=== PATIENT | female | born 2000 | race Caucasian/White ===

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

== ENCOUNTER 2020-09-14 11:22 | Emergency (ER) | payer SELFPAY ==
[2020-09-14 11:26] VITALS: BP 133/73; PULSE 92; RESP 16; TEMP 36.6; O2SAT 99
--- NOTE | 2020-09-14 11:34 | ED.GENADUL_ITS ---
Discharge Plan Disposition Patient Disposition: HOME Condition: Stable Discharge Details Chief Complaint: Cellulitis Clinical Impression: Tick bite Primary Care Provider: Shmuel Courtney ED Provider: José Miguel Marie Home Meds and New Rx's Prescriptions: No Action Nexplanon 68 MG implant 68 mg SQ ONCE Qty: 1 RF: 0 Discharge Instructions Instructions: Tick Bite (ED) Additional Instructions: if you develop fevers, pain or a bulls eye appearing rash return to the emergency department for reevaluation Medical Decision Making 19 yo female who denies chronic medical problems comes in with cc of tick bite. States she pulled a tick off her left upper back this morning and is unsure how long it was there for. Denies fevers, chills, pain, or rashes other than some mild erythema around the tick bite which is about 1mm around the bite. no fluctuance or drainage. Given no bulls eye rash or other symptoms do not feel testing or treatment for lyme or other tick born illness indicated, will provide prophylactic dose of doxy and return precautions given Differential Diagnosis Differential Diagnosis: tick bite, lyme, cellulitis HPI General Mode of arrival: ambulatory . Date/Time Provider Initiated Documentation: 09/14/20 11:29 . Limitations to Documentation: no limitations . Information obtained by: patient . History of Present Illness 19 year old F presents to the emergency department with the chief complaint of tick bite, described as mild, and it has been constant. No relieving factors improve symptom(s), No exacerbating factors reported . Patient notes no other symptoms.. Related Data Home Medications Medication Instructions Recorded Confirmed Nexplanon 68 mg SQ ONCE #1 implant 12/24/17 09/14/20 Allergies Allergy/AdvReac Type Severity Reaction Status Date / Time No Known Allergies Allergy Unverified 09/14/20 11:28 General Stated Complaint: Cellulitis RADHA: 4 Review of Systems All systems reviewed & are unremarkable except as noted in HPI and below Constitutional Constitutional: Denies chills, Denies fever(s) and Denies weakness Cardiovascular Cardiovascular: Denies chest pain and Denies dyspnea Respiratory Respiratory: Denies cough and Denies dyspnea Gastrointestinal Gastrointestinal: Denies abdominal pain, Denies nausea and Denies vomiting Musculoskeletal Musculoskeletal: Denies joint swelling Neurologic Neurologic: Denies weakness Psychiatric Psychiatric: Denies depression [facility] Medical History (Updated 09/14/20 @ 11:38 by José Miguel Marie MD) 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 Grandmother Personal history of malignant neoplasm breast [place] Social History Smoking/Tobacco Use Status: Current-Occasional Tobacco Type: cigarettes Smoking risk assessment performed?: Yes Alcohol Intake: never Drug use: Occasionally Substance use type: marijuana Do you feel safe at home: Yes Do you feel safe in your relationship?: Yes Exam Const General: no acute distress Orientation: alert HENMT Head: normal to inspection Ears: external ears normal General nose exam: external nose normal Mouth: moist mucous membranes Eyes General: appearance normal, both eyes and all related structures Neck Neck: normal visual inspection Resp Effort & Inspection: normal respiratory effort and able to speak in complete sentences Cardio Rate: regular rate Skin General skin exam: elasticity normal Neuro General: patient alert and patient oriented x3 Extrem General: normal to inspection Psych Mental Status: mental status grossly normal Course Vital Signs Vital signs: Vital Signs Temperature 36.6 C 09/14/20 11:26 Pulse 92 H 09/14/20 11:26 Respiratory Rate 16 09/14/20 11:26 Blood Pressure 133/73 09/14/20 11:26 Pulse Oximetry 99 09/14/20 11:26 Temperature 36.6 C 09/14/20 11:26 Temperature Source Skin 09/14/20 11:26 Pulse 92 H 09/14/20 11:26 Respiratory Rate 16 09/14/20 11:26 Respiratory Effort Non-Labored 09/14/20 11:29 Blood Pressure 133/73 09/14/20 11:26 Blood Pressure Position Sitting 09/14/20 11:26 Pulse Oximetry 99 09/14/20 11:26 Oxygen Delivery Method Room Air 09/14/20 11:26 Oxygen Flow Rate 0 09/14/20 11:26 Pain Level 2 09/14/20 11:26
[2020-09-14] MEDS: Doxycycline Hyclate 100 MG CAP 200 MG PO (11:37)
== END 2020-09-14 11:53 | disposition home or self-care (01) ==
PROVIDERS: Emergency Provider Emergency Medicine; PCP Pediatrics
DX: S20.462A Insect bite (nonvenomous) of left back wall of thorax, initial encounter (principal); W57.XXXA Bitten or stung by nonvenomous insect and other nonvenomous arthropods, initial encounter
CPT/HCPCS: 99283

== ENCOUNTER 2020-10-02 14:39 | Outpatient (REF) | payer SELFPAY ==
[2020-10-03 14:06] LABS: Chlamydia Result Negative (Negative); GC Result Negative (Negative)
[2020-10-10 08:56] LABS: HSV 1 DNA Result Negative (Negative); HSV 2 DNA Result Positive (Negative)
== END 2020-10-02 14:40 | disposition home or self-care (01) ==
LOC: LBN 14:39
PROVIDERS: PCP Pediatrics; Visit Provider Nurse Practitioner Women's Health
DX: N90.89 Other specified noninflammatory disorders of vulva and perineum (principal); Z11.3 Encounter for screening for infections with a predominantly sexual mode of transmission; Z11.59 Encounter for screening for other viral diseases
CPT/HCPCS: 87491; 87529; 87591

== ENCOUNTER 2024-07-18 13:47 | Outpatient (REF) | payer BC, SELFPAY ==
--- NOTE | 2024-07-18 13:30 | PAPFT_PTH ---
PATIENT: Cathy Santiago LOC: [facility] U#:[id number] AGE/SX: 23/F ROOM: RE07/18/[address]: Kenia Ornelas : 2000 BED: DIS: 07/18/2024 SPEC #: [id number] RECD: 07/18/24 17:38 STATUS: JAVIER REAlmita #: [id number] FRAN: 07/18/24 13:[address]: Kenia Ornelas DEPT: [facility] Cytology RECD BY: Afia Olvera ENTERED: 07/18/24 17:38 SP TYPE: PAPFT OTHR DR: Unknown,Unknown Tissues: 1 - CX/ENDOCX FOR PAP SMEARS Procedures: PAP THIN PREP/[facility] Screening HPV DNA PROBE Comments: [id number] (HPV 16 & 18/45)
[2024-07-19 12:09] LABS: Chlamydia Result Negative (Negative); GC Result Negative (Negative)
== END 2024-07-18 13:48 | disposition home or self-care (01) ==
LOC: LBN 13:47
PROVIDERS: Visit Provider Obstetrics & Gynecology Gynecology
DX: Z01.419 Encounter for gynecological examination (general) (routine) without abnormal findings (principal); Z11.51 Encounter for screening for human papillomavirus (HPV); Z11.3 Encounter for screening for infections with a predominantly sexual mode of transmission
CPT/HCPCS: 87491; 87591; 88142; 87624

== ENCOUNTER 2024-07-18 15:07 | Outpatient (CLI) | payer BC, SELFPAY ==
--- OUTSIDE RECORDS SUMMARY | 2024-07-18 15:10 | XMS_ITS | Encounter Summary ---
Author Organization [facility] Address [address] [place] [id number] Care Team Providers Care Physical Meteorologist Name Role Phone Unavailable Primary Care Provider Unavailabl e Encounter Details Date Type Department Care Team (Late st Contact Info) Description 10/02/2020 Lab Requisition [facility] Pathology & Laboratory Medicine - [facility] [address] [place] [address] Outr Resulting Lab, Provider Social History Tobacco Use Types Packs/Day Years Used Date Smoking Tobacco: Never Assessed Interpersonal Safety Answer Date Record ed Physically Hurt Never 10/02/2020 Verbally Threaten Not on file 10/02/2020 Comments Unknown Sex and Gender Information Value Date Recorded Sex Assigned at Not on file Legal Sex Female 16:06 EDT Gender Identity Not on file Sexual Orientation Not on file documented as of this encounter Plan of Treatment Not on file documented as of this encounter Procedures Procedure Name Priority Date/Time Associated Diagnosis Comments CHLAMYDIA/N. GONORRHOEAE AMPLIFIED NUCLEIC ACID Routine 10/02/2020 11:30 EDT documented in this encounter Results * CHLAMYDIA/N. GONORRHOEAE AMPLIFIED RNA (10/02/2020 11:30 EDT) Neisseria gonorrhoeae Result Negative Negative 10/03/2020 14:01 EDT [facility] Chlamydia trachomatis Result Negative Negative 10/03/2020 14:01 EDT [facility] Swab ENTIRE VAGINA / Unknown 10/02/2020 11:30 EDT 10/02/2020 20:57 EDT us Provider Outr Resulting Lab MICROBIOLOGY - GENER AL ORDERABLES Final Result [facility] [address] [place] [address] documented in this encounter Visit Diagnoses Not on filedocumented in this encounter
--- OUTSIDE RECORDS SUMMARY | 2024-07-18 15:10 | XMS_ITS | Referral Summary ---
Author Organization [facility] Address [address] [place] [address] Care Team Providers Care Order Puller Name Role Phone Unavailable Primary Care Provider Unavailabl e Social History Tobacco Use Types Packs/Day Years Used Date Smoking Tobacco: Never Assessed Interpersonal Safety Answer Date Record ed Physically Hurt Never 10/02/2020 Verbally Threaten Not on file 10/02/2020 Comments Unknown Sex and Gender Information Value Date Recorded Sex Assigned at Not on file Legal Sex Female 16:06 EDT Gender Identity Not on file Sexual Orientation Not on file Plan of Treatment Not on file
--- OUTSIDE RECORDS SUMMARY | 2024-07-18 15:10 | XMS_ITS | Clinical Summary ---
Author Organization [facility] Address [address] [place] [address] Care Team Providers Care Supervisor Whipped Topping Name Role Phone Unavailable Primary Care Provider [...] Orientation Not on file Plan of Treatment Health Maintenance Due Date Last Done Comments Hepatitis C Screen 2000 Hepatitis B Vaccine (1 of 3 - 19+ 3-dose series) 10/07 COVID-19 Vaccine ( season) 2024
--- OUTSIDE RECORDS SUMMARY | 2024-07-18 15:10 | XMS_ITS | Encounter Summary ---
Author Organization [facility] Address [address] [place] [address] Care Team Providers Care Finisher Accordion Name Role Phone Unavailable Primary Care Provider Unavailabl e Encounter Details Date Type Department Care Team (Late st Contact Info) Description 10/02/2020 Lab Requisition [facility] Pathology & Laboratory Medicine - [facility] [address] [place] [address] Outr Resulting Lab, Provider Social History Tobacco [...] Procedure Name Priority Date/Time Associated Diagnosis Comments HSV (HERPES SIMPLEX VIRUS) MOLECULAR DETECTION, PCR Routine 10/02/2020 11:30 EDT documented in this encounter Results * (ABNORMAL) HERPES SIMPLEX VIRUS MOLECULAR DETECTION, PCR (10/02/2020 11:30 EDT) Herpes Simplex Virus Molecular Detection 1, PCR Negative Negative 10/03/2020 13:02 EDT [facility] Herpes Simplex Virus Molecular Detection 2, PCR Positive(A) Negative 10/03/2020 13:02 EDT [facility] Swab ENTIRE VULVA / Unknown 10/02/2020 11:30 EDT 10/02/2020 20:56 EDT us Provider Outr Resulting Lab MICROBIOLOGY - GENER AL ORDERABLES Final Result [facility] [address] [place] [address] documented in this encounter Visit Diagnoses Not on filedocumented in this encounter
[2024-07-20 10:39] LABS: Antimullerian Hormone 3.7 ng/mL (1.2-12)
== END 2024-07-18 15:08 | disposition home or self-care (01) ==
LOC: LBO 15:08
PROVIDERS: Visit Provider Obstetrics & Gynecology Gynecology
DX: Z30.09 Encounter for other general counseling and advice on contraception (principal); Z01.419 Encounter for gynecological examination (general) (routine) without abnormal findings
CPT/HCPCS: 36415; 87491; 87591; 83520

== ENCOUNTER 2024-08-21 03:02 | Emergency (ER) | payer BC, SELFPAY ==
[2024-08-21 03:06] VITALS: BP 105/59; PULSE 140; RESP 22; TEMP 38.7; O2SAT 97
--- NOTE | 2024-08-21 03:08 | W.ED.GENAD ---
Discharge Plan Disposition Patient Disposition: Home Condition: Stable Discharge Details Clinical Impression: Acute streptococcal pharyngitis Primary Care Provider: Fara,Local ED Provider: John Miramontes [place] Meds and New Rx's Prescriptions: New amoxicillin-pot clavulanate 875-125 mg tablet 1 tab PO BID Qty: 14 0RF Continued valacyclovir 500 mg tablet 500 mg PO BID PRN (Reason: HSV outbreak) 3 Days Qty: 6 6RF Rx Instructions: Take one tab twice a day for 3 days for outbreaks Discharge Instructions Instructions: Strep Throat ED Discharge Data Discharge Physician: John Miramontes HPI General Date/Time Provider Initiated Documentation: 08/21/24 03:08. HPI Narrative: Patient presents emergency department complaining of fever chills and sore throat and generalized bodyaches Related Data Home Medications ?Medication ?Instructions ?Recorded ?Confirmed valacyclovir 500 mg tablet 500 mg PO BID PRN HSV outbreak 3 10/10/20 08/21/24 days #6 tabs amoxicillin 875 mg-potassium 1 tab PO BID #14 tabs 08/21/24 clavulanate 125 mg tablet Previous Rx's ?Medication ?Instructions ?Recorded valacyclovir 500 mg tablet 500 mg PO BID PRN HSV outbreak 3 10/10/20 days #6 tabs amoxicillin 875 mg-potassium 1 tab PO BID #14 tabs 08/21/24 clavulanate 125 mg tablet Allergies Allergy/AdvReac Type Severity Reaction Status Date / Time No Known Allergies Allergy Unverified 08/21/24 03:05 General RADHA: 4 Review of Systems Narrative: Review of Systems: Constitutional: No sweats Eye: No recent visual problems ENT: No ear pain, nasal congestion, Respiratory: No shortness of breath, cough Cardiovascular: No Chest pain, palpitations, syncope Gastrointestinal: No nausea, vomiting, diarrhea Genitourinary: No hematuria Cliff/Lymph: Negative for bruising tendency, swollen lymph glands Endocrine: Negative for excessive thirst, excessive hunger Musculoskeletal: No back pain, neck pain, joint pain, muscle pain, decreased range of motion Integumentary: No rash, pruritus, abrasions Neurologic: Alert & oriented X 4 Psychiatric: No anxiety, depression Exam Narrative Exam Narrative: Exam; vitals signs as reported above normal Constitutional; In no acute distress, afebrile General: cooperative, healthy appearing, comfortable and no acute distress HEENT: Head: normal to inspection, no palpable skull fracture and normocephalic atraumatic Eyes: : appearance normal, both eyes and all related structures EOM intact bilaterally Pupils: PERRL : conjunctiva normal Direct ophthalmoscopy: normal light reflex, normal conjunctiva, normal visual acuity Ears: Normal TM, normal external canal Nose: normal no rhinorreha Oropharynx: Hyperemic with posterior exudate Neck no JVD, supple non tender Neck: normal visual inspection, full ROM and no lymphadenopathy Chest: normal inspection of the chest Respiratory : normal respiratory effort and able to speak in complete sentences no wheezing no rales Cardio Rate: regular rate, rhythm: regular rhythm normal heart sounds S1 and S2 no murmurs, gallops, or rubs GI : normal to inspection, normal bowel sounds, soft, non tender, non distended, no organomegaly Back/Spine/ no CVA tenderness Thoracic/Lumbar Spine: no tenderness or deformities Skin no rashes or lesions Neuro: patient alert oriented x 4 and no meningeal signs, Cranial Nerves: CN's II-XI intact bilaterally, Cognition: normal cognition, Speech: speech normal, Gait: normal gait, Depp tendon reflexes normal 2+ muscle strength 5/5 bilaterally Extremities, no edema, full range of motion, normal strength : normal Rectal: Medical Decision Making MDM: Summary: Patient with a sore throat with this positive for strep a who will be treated with amoxicillin colonic acid for 7 days Data Review Analysis All the data on this patient was reviewed by me including laboratory and imaging studies as well as bedside studies performed by me Independent review of Studies Imaging Lab: Positive for strep today negative for influenza and COVID Risk Stratification: Patient with strep patient will be discharged home Differential Diagnosis: 1. Strep pharyngitis 2. Viral pharyngitis 3. Influenza 4. COVID-19 5. 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
[2024-08-21 03:17] VITALS: PULSE 135; RESP 19; TEMP 38.7; O2SAT 98
[2024-08-21 03:59] LABS: COVID-19 PCR Negative (Negative); Influenza A PCR Negative (Negative); Influenza B PCR Negative (Negative); RSV PCR Negative (Negative)
[2024-08-21 04:14] LABS: Source Nasopharynx
[2024-08-21] MEDS: Ibuprofen 100 MG/5 ML CUP 600 MG PO (04:24)
[2024-08-21] MEDS: Amoxicillin 875/Clav. 125 TAB PO (04:24)
[2024-08-21 04:33] VITALS: PULSE 112; RESP 19; TEMP 37.7; O2SAT 98
== END 2024-08-21 04:35 | disposition home or self-care (01) ==
PROVIDERS: Emergency Provider Emergency Medicine Emergency Medical Services
DX: J02.0 Streptococcal pharyngitis (principal); Z87.891 Personal history of nicotine dependence
CPT/HCPCS: 87637; 87880; 99283